=== PATIENT | female | born 1995 | race Caucasian/White ===

== ENCOUNTER 2023-02-27 16:51 | Emergency (ER) | payer SELFPAY ==
[~2023-02-27] VITALS: Ht 162.6 cm; Wt 90.9 kg
[2023-02-27 16:58] VITALS: BP 149/71
[2023-02-27] MEDS ORDERED: DIAZEPAM 5 MG TABLET PO ONE (17:30)
[2023-02-27] MEDS ORDERED: KETOROLAC TROMETHAMINE 30 MG/ML VIAL IVP ONE (17:30)
[2023-02-27] MEDS ORDERED: IBUP-1492 PO (18:49)
[2023-02-27] MEDS ORDERED: DIAZ5TAB5 PO (18:49)
[2023-02-27] MEDS ORDERED: LIDO700A15 TP (18:49)
== END 2023-02-27 19:05 | disposition home or self-care (01) ==
LOC: EMS 16:52
DX: S39.012A Strain of muscle, fascia and tendon of lower back, initial encounter (principal); X58.XXXA Exposure to other specified factors, initial encounter; Y93.89 Activity, other specified; Y92.89 Other specified places as the place of occurrence of the external cause; Y99.8 Other external cause status
CPT/HCPCS: 99283; 96374; J1885